=== PATIENT | male | born 1935 | race Caucasian/White ===

== ENCOUNTER → 2017-10-26 | Outpatient (CLI) | payer MEDICARE, OTHER ==
--- NOTE | 2017-10-26 11:46 | FL ---
EXAMINATION TYPE: FL barium swallow w video DATE OF EXAM: 10/26/2017 COMPARISON: NONE HISTORY: Dysphasia food getting stuck TECHNIQUE: Fluoroscopy. FINDINGS: Fluoroscopic guidance was provided for the procedure performed in conjunction with the [facility] [place] pathology department. Please see complete report forthcoming from the Speech Pathology departmen t. Various consistencies from thin liquid to solids were administered. Fluoroscopy time 1 minute 40 seconds Number of images: 0. No aspiration or penetration was evident. No significant pooling was observed in the vallecula. There was normal propulsion of the bolus. There is persistence of the cricopharyngeus muscle throughout the examination. Pooling within the hyp opharynx above the cricopharyngeus muscle is evident increasing with thicker consistencies. There is incomplete clearing with thin liquids. IMPRESSION: 1. Persistence of the cricopharyngeus muscle throughout the examination. 2. Pooling and retention in the inferior hypopharynx increasing with thicker consistencies.
== END | disposition home or self-care (01) ==
LOC: RADFLMAIN 11:07
PROVIDERS: ATTEND Family Medicine
DX: R13.10 Dysphagia, unspecified (principal)
CPT/HCPCS: 74230

== ENCOUNTER 2017-12-12 08:39 | Day surgery (SDC) | payer MEDICARE, OTHER ==
[2017-12-11 13:02] VITALS: BMI 27.8
[~2017-12-12 08:39] MED LIST: LACTATED RINGERS 1,000 ML IV SCH; LIDOCAINE 1% 20 ML VIAL (10MG/ML) FOR IV START INTRADERMA PRN
[2017-12-12 09:51] VITALS: TEMP 97.8
[2017-12-12] MEDS ORDERED: PROPOFOL 10 MG/ML 20 ML VIAL IV ONE (10:09)
[2017-12-12] MEDS ORDERED: LIDOCAINE 1% INJ 10MG/ML (20 ML MDV) ONE (10:09)
[2017-12-12] MEDS ORDERED: LABETALOL 5 MG/ML VIAL MDV ONE (10:09)
[2017-12-12 10:37] VITALS: PULSE 61; RESP 16
--- NOTE | 2017-12-12 10:42 | P.PCN ---
Date of Procedure: 12/12/17 Procedure(s) Performed: Procedure: Esophagogastroduodenoscopy and biopsy. Preoperative diagnosis: Dysphagia and abnormal barium swallow. Postoperative diagnosis: 1. Small sliding hiatal hernia with no obvious esophagitis or complicated reflux disease. 2. No evidence of Zenker's diverticulum. 3. Mild antral gastritis. 4. Multiple biopsies obtained from the duodenum, antrum and esophagus. Preparation and sedation: Was provided by anesthesia. Reflux clinical history: The patient is an 82-year-old male who is scheduled for this evaluation because of dysphagia that he has been experiencing for the last 6 months or so. He denied history of reflux or any other alarm symptoms such as weight loss or anemia. He had a fluoroscopic barium swallow with video 10/26/2017 that showed persistence of the cricopharyngeus throughout the examination and pooling and retention in the inferior hypopharynx increasing with thicker consistencies. I scheduled this evaluation to rule out with confidence any neoplastic process or complicated reflux disease or other pathology. Procedure: With the patient on his left lateral decubitus position and after informed consent and adequate sedation, I passed the Olympus-GIF 160 video upper endoscope through the cricopharyngeus down the esophagus. There was some hesitation around the cricopharyngeus to the passing of the endoscope but I did not see any obvious abnormalities or any evidence of Zenker's diverticulum. GE junction was around 40 cm from the incisors and there was a small sliding hiatal hernia. The esophagus did not show any obvious erosions, ulcers, strictures or Gonzalez's esophagus. The endoscope was then passed into the stomach which was insufflated with air and inspected in detail including the retroflex view in the cardia. There was some mottling and erythema in the antrum but no ulcers or erosions. Pyloric channel, duodenal bulb, post bulbar area and descending duodenum showed minimal erythema. I obtained multiple biopsies from the duodenum, antrum and esophagus then the endoscope was withdrawn. The patient tolerated the procedure well. Plan: The patient was reassured. Will continue to monitor his symptoms and watch his weight and watch for any nutritional compromise. Further plans will be made based on his course. I will keep you updated on his progress.
[2017-12-12 10:56] VITALS: BP 170/78
== END 2017-12-12 11:30 | disposition home or self-care (01) ==
LOC: ORWHC2ENDO 08:39
DX: K29.50 Unspecified chronic gastritis without bleeding (principal); K20.9 Esophagitis, unspecified; K44.9 Diaphragmatic hernia without obstruction or gangrene; R13.10 Dysphagia, unspecified; I25.10 Atherosclerotic heart disease of native coronary artery without angina pectoris; Z95.1 Presence of aortocoronary bypass graft; Z79.82 Long term (current) use of aspirin; Z79.899 Other long term (current) drug therapy
CPT/HCPCS: 88305; 43239; J2001; J2704